=== PATIENT | male | born 1955 | race Caucasian/White ===

== ENCOUNTER 2019-01-09 12:42 | Day surgery (SDC) | payer OTHER ==
[~2019-01-09] VITALS: Ht 177.8 cm; Wt 129.3 kg
[~2019-01-09 12:42] MED LIST: AMLO10 PO; Adult Low Dose81 MG PO; CALCAVITD PO; ESCI10 PO; FERR325; GLIM2; GLIM4 PO; Glucophage1000 MG PO; LISI20 PO; LISI5 PO; METF500 PO; Multiple Vitam1 EAC1 PO; PIOG15; TERA5 PO; TOCO1000 PO; Terazosin HCl10 MG PO; ZESTORETIC 20-1 EACH PO
== END 2019-01-09 14:51 | disposition home or self-care (01) ==
LOC: ORSCSDS 12:42
PROVIDERS: Internal Medicine Gastroenterology
PROC: 0DBP8ZX Excision of Rectum, Via Natural or Artificial Opening Endoscopic, Diagnostic (ICD-10-PCS; principal; 2019-01-09 14:00)
PROC: 0DBM8ZX Excision of Descending Colon, Via Natural or Artificial Opening Endoscopic, Diagnostic (ICD-10-PCS; principal; 2019-01-09 14:00)
PROC: 0DBN8ZX Excision of Sigmoid Colon, Via Natural or Artificial Opening Endoscopic, Diagnostic (ICD-10-PCS; principal; 2019-01-09 14:00)
DX: Z12.11 Encounter for screening for malignant neoplasm of colon (principal); Z86.010 Personal history of colon polyps; K57.30 Diverticulosis of large intestine without perforation or abscess without bleeding; Z80.0 Family history of malignant neoplasm of digestive organs; I10 Essential (primary) hypertension; E11.9 Type 2 diabetes mellitus without complications; G47.33 Obstructive sleep apnea (adult) (pediatric); E66.01 Morbid (severe) obesity due to excess calories; Z68.41 Body mass index [BMI] 40.0-44.9, adult; Z79.899 Other long term (current) drug therapy; Z79.82 Long term (current) use of aspirin
CPT/HCPCS: 82947; 88305; J2250; J2704; J7120

== ENCOUNTER 2024-09-18 08:31 | Day surgery (SDC) | payer OTHER ==
[~2024-09-18] VITALS: Ht 180.3 cm; Wt 117.9 kg
[~2024-09-18 08:31] MED LIST changes: +Aspir 8181 MG PO; +ERGO400; +GLIM4; -Glucophage1000 MG PO; +HYDCHL25 PO; +IRON SULFATE; +Lactated Ringer's 1,000 ML IV SCH; +MELO7.5 PO; +OXYC5 PO; +PIOG15 PO; +TRULICITY0.75 MG/01; +ZOCOR20 MG PO
--- NOTE | 2024-09-18 10:00 | NUR ---
INTO SDS VIA WHEELCHAIR. PT HAS RIGHT LEG PROSTHESIS.PT REPORTS 8/10 GENERALIZED PAIN.HISTORY AND ALLERGIES REVIEWED. LUNGS DIMINISHED IN THE BASES. SATS>90% ON RA. PT DENIES SOB. NPO STATUS CONFIRMED. PREP CONFIRMED. PT MADELEINE IS DRIVING PT HOME.
[2024-09-18 10:04] VITALS: BP 154/84
[2024-09-18] MEDS ORDERED: Acerola C500 MG PO (10:22)
[2024-09-18] MEDS ORDERED: propofoL 40 ML IV ONE (11:44)
--- NOTE | 2024-09-18 11:48 | NUR ---
09/18/24 1148 Diana Ramsey History, Chart, Medications and Allergies reviewed before start of procedure.MONITOR INTACT WITH CONTINUOUS PULSE OXIMETRY, CONTINUOUS END TITAL CO2, AND INTERMITTENT BLOOD PRESSURE.3-LEAD EKG REVIEWED WITH PHYSICIAN PRIOR TO START OF PROCEDURE.O2 VIA POM INTACT THROUGHOUT SEDATION/PROCEDURE.KELL CHERY PROVIDING MAC. SEE ANESTHESIA RECORD.
[2024-09-18 12:11] VITALS: BP 131/75
--- NOTE | 2024-09-18 12:34 | NUR ---
Discharge instructions reviewed with patient. Patient verbalizes understanding. Copy given to patient to take home. Patient States Post-Procedure ride home has been arranged. Discharged via wheelchair to private car for ride home.
== END 2024-09-18 12:35 | disposition home or self-care (01) ==
LOC: ORSCMMR 08:31 → ORD 10:00 → ORSCMMR 12:35
PROVIDERS: Internal Medicine Gastroenterology
PROC: 0DJD8ZZ Inspection of Lower Intestinal Tract, Via Natural or Artificial Opening Endoscopic (ICD-10-PCS; principal; 2024-09-18 10:00)
DX: Z12.11 Encounter for screening for malignant neoplasm of colon (principal); Z80.0 Family history of malignant neoplasm of digestive organs; Z86.0102 Personal history of hyperplastic colon polyps; Z86.0101 Personal history of adenomatous and serrated colon polyps; I10 Essential (primary) hypertension; E11.9 Type 2 diabetes mellitus without complications; E78.00 Pure hypercholesterolemia, unspecified; G47.33 Obstructive sleep apnea (adult) (pediatric); N40.0 Benign prostatic hyperplasia without lower urinary tract symptoms; E66.01 Morbid (severe) obesity due to excess calories; Z68.36 Body mass index [BMI] 36.0-36.9, adult; Z79.84 Long term (current) use of oral hypoglycemic drugs; Z79.899 Other long term (current) drug therapy; Z79.82 Long term (current) use of aspirin
CPT/HCPCS: 82947; J2704; J7120

== ENCOUNTER → 2025-05-26 | Outpatient (CLI) | payer OTHER ==
[~2025-05-26] MED LIST changes: +Acerola C500 MG PO; -Lactated Ringer's 1,000 ML IV SCH
[2025-05-26 10:44] LABS: Source, Urine Clean Catch
[2025-05-26 12:47] LABS: Bilirubin, Urine Neg (Neg); Color, Urine Yellow (P-Yellow); Glucose Qualitative, Urine Neg (Neg); Ketones, Urine Neg (Neg); Leukocyte Esterase, Urine 2+ (Neg); Protein, Urine 2+ (Neg); Specific Gravity, Urine 1.010 (1.003-1.022); Urobilinogen, Urine NORM (Normal)
[2025-05-26 13:08] LABS: Red Blood Cells, Urine 0-2 /hpf (0-2)
== END | disposition home or self-care (01) ==
LOC: LAB 10:34 → LAB SHORT 10:34
PROVIDERS: Family Medicine
DX: N39.0 Urinary tract infection, site not specified (principal); A49.9 Bacterial infection, unspecified
CPT/HCPCS: 81001; 87077; 87086; 87186

== ENCOUNTER → 2025-06-25 | Outpatient (CLI) | payer OTHER ==
[2025-06-25 14:33] LABS: BASOPHILS ABSOLUTE AUTO 0.06 K/mm3 (0.00-0.23); BASOPHILS PERCENT AUTO 1 % (0-2); EOSINOPHILS ABSOLUTE AUTO 0.35 K/mm3 (0.00-0.68); EOSINOPHILS PERCENT AUTO 3 % (0-6); Hematocrit 31.7 % (37.0-53.0); Hemoglobin 10.4 g/dL (13.5-17.5); IMMATURE GRAN ABSOLUTE AUTO 0.16 K/mm3 (0.00-0.10); IMMATURE GRAN PERCENT AUTO 1 % (0-1); LYMPHOCYTES ABSOLUTE AUTO 1.86 K/mm3 (0.84-5.20); LYMPHOCYTES PERCENT AUTO 16 % (21-46); MONOCYTES ABSOLUTE AUTO 0.50 K/mm3 (0.16-1.47); MONOCYTES PERCENT AUTO 4 % (4-13); Mean Corpuscular HGB Conc 32.8 g/dL (31.5-36.5); Mean Corpuscular Volume 88 fL (80-100); NEUTROPHILS ABSOLUTE AUTO 8.44 K/mm3 (1.96-9.15); NEUTROPHILS PERCENT AUTO 74 % (41-73); NRBC ABSOLUTE 0.00 K/mm3 (0.00-0.02); NRBC Auto 0.0 /100 WBC (0.0-0.2); Platelet Count 333 K/mm3 (150-400); RDW Coefficient Variation 13.5 % (11.7-14.2); RDW Standard Deviation 43.2 fL (35.1-46.3)
[2025-06-25 14:38] LABS: Anion Gap 15.0 mmol/L (3-11); Blood Urea Nitrogen 36.0 mg/dL (8-24); CO2, Blood 25.0 mmol/L (21-32); Calcium, Blood 9.5 mg/dL (8.5-10.1); Chloride, Blood 99.0 mmol/L (98-108); Creatinine, Blood 1.92 mg/dL (0.60-1.20); Glucose, Blood 85.0 mg/dL (70-99); Potassium, Blood 5.4 mmol/L (3.5-5.5); Sodium, Blood 134.0 mmol/L (136-145)
== END | disposition home or self-care (01) ==
LOC: LAB SHORT 14:29 → LAB 14:29
PROVIDERS: Chiropractor
DX: S80.12XA Contusion of left lower leg, initial encounter (principal)
CPT/HCPCS: 80048; 85025

== ENCOUNTER → 2025-06-26 | Outpatient (CLI) | payer OTHER | LOC: LAB SHORT 18:46 → LAB 18:46 | DX: S81.802D Unspecified open wound, left lower leg, subsequent encounter (principal) | CPT/HCPCS: 87070; 87075; 87205 ==

== ENCOUNTER 2025-07-01 02:24 | Day surgery (SDC) | payer OTHER ==
[2025-07-01] MEDS ORDERED: Lidocaine HCl 4% Cream 5 GM ONE (08:10)
== END 2025-07-01 22:00 | disposition home or self-care (01) ==
LOC: WOUND 02:24
DX: S81.802A Unspecified open wound, left lower leg, initial encounter (principal); W11.XXXA Fall on and from ladder, initial encounter; E11.9 Type 2 diabetes mellitus without complications; I10 Essential (primary) hypertension; G47.30 Sleep apnea, unspecified; Z89.511 Acquired absence of right leg below knee
CPT/HCPCS: A6213; A9270; G0463

== ENCOUNTER 2025-07-17 02:53 | Day surgery (SDC) | payer OTHER ==
[2025-07-17] MEDS ORDERED: Lidocaine HCl 4% Cream 5 GM ONE (10:03)
== END 2025-07-17 23:00 | disposition home or self-care (01) ==
LOC: WOUND 02:53
DX: S81.802A Unspecified open wound, left lower leg, initial encounter (principal); X58.XXXD Exposure to other specified factors, subsequent encounter; E11.9 Type 2 diabetes mellitus without complications; I10 Essential (primary) hypertension; G47.30 Sleep apnea, unspecified; Z89.511 Acquired absence of right leg below knee
CPT/HCPCS: A6213; A9270

== ENCOUNTER 2025-07-24 00:19 | Day surgery (SDC) | payer OTHER ==
[2025-07-24] MEDS ORDERED: Lidocaine HCl 4% Cream 5 GM ONE (10:16)
== END 2025-07-24 23:00 | disposition home or self-care (01) ==
LOC: WOUND 00:19
DX: S81.802A Unspecified open wound, left lower leg, initial encounter (principal); E11.622 Type 2 diabetes mellitus with other skin ulcer; L97.822 Non-pressure chronic ulcer of other part of left lower leg with fat layer exposed; I10 Essential (primary) hypertension; Z89.511 Acquired absence of right leg below knee; X58.XXXA Exposure to other specified factors, initial encounter
CPT/HCPCS: A9270

== ENCOUNTER 2025-07-31 02:37 | Day surgery (SDC) | payer OTHER | END 2025-07-31 23:00 | disposition home or self-care (01) | LOC: WOUND 02:37 | DX: S81.802A Unspecified open wound, left lower leg, initial encounter (principal); E11.9 Type 2 diabetes mellitus without complications; I10 Essential (primary) hypertension; Z89.511 Acquired absence of right leg below knee ==

== ENCOUNTER 2025-08-14 00:25 | Day surgery (SDC) | payer OTHER | END 2025-08-14 23:00 | disposition home or self-care (01) | LOC: WOUND 00:25 | DX: E11.622 Type 2 diabetes mellitus with other skin ulcer (principal); L97.822 Non-pressure chronic ulcer of other part of left lower leg with fat layer exposed; S81.802D Unspecified open wound, left lower leg, subsequent encounter; I10 Essential (primary) hypertension; Z89.511 Acquired absence of right leg below knee | CPT/HCPCS: G0463 ==